=== PATIENT | female | born 1955 | race Caucasian/White ===

== ENCOUNTER 2017-04-01 11:39 | Emergency (ER) | payer BC, OTHER ==
[2017-04-01 11:56] VITALS: PULSE 108
[2017-04-01] MEDS ORDERED: Sodium Chloride 0.9% 1,000 ML IV ONE (12:03)
--- NOTE | 2017-04-01 12:14 | C.PDOC ---
History Of Present Illness Patient is a 61 y/o female that presents to the emergency department for evaluation of non-radiating LLQ abdominal cramping associated with n/v/d, fever , and chills since this morning. 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 Denies having similar symptoms in the past. Otherwise, denies any dysuria, hematuria, hematochezia, back pain, or any other associated symptoms at this time. Time Seen by Provider: 04/01/17 11:58 Chief Complaint (Nursing): Abdominal Pain History Per: Patient History/Exam Limitations: no limitations Onset/Duration Of Symptoms: Hrs Current Symptoms Are (Timing): Still Present Location Of Pain/Discomfort: LLQ Radiation Of Pain To:: None Quality Of Discomfort: Cramping Associated Symptoms: Fever, Chills, Nausea, Vomiting, Diarrhea. denies: Loss Of Appetite, Back Pain, Chest Pain, Constipation, Urinary Symptoms Exacerbating Factors: None Alleviating Factors: None Recent travel outside of the [place]: No Additional History Per: Patient Abnormal Vaginal Bleeding: No Past Medical History Reviewed: Historical Data, Nursing Documentation, Vital Signs Vital Signs: Last Vital Signs Temp 99.9 F H 04/01/17 16:03 Pulse 108 H 04/01/17 16:03 Resp 18 04/01/17 16:03 BP 111/69 04/01/17 16:03 Pulse Ox 98 04/01/17 16:03 Surgical History: Cholecystectomy Family History: States: Unknown Family Hx - Social History Hx Alcohol Use: No Hx Substance Use: No - Immunization History Hx Tetanus Toxoid Vaccination: No Hx Influenza Vaccination: No Hx Pneumococcal Vaccination: No Review Of Systems Constitutional: Positive for: Fever, Chills ENT: Negative for: Nose Congestion, Throat Pain Cardiovascular: Negative for: Chest Pain, Palpitations Respiratory: Negative for: Cough, Shortness of Breath Gastrointestinal: Positive for: Nausea, Vomiting, Abdominal Pain, Diarrhea. Negative for: Constipation, Melena, Hematochezia, Hematemesis, Rectal Pain Genitourinary: Negative for: Dysuria, Frequency, Incontinence, Hematuria, Vaginal Bleeding Musculoskeletal: Negative for: Back Pain Skin: Negative for: Rash Neurological: Negative for: Weakness, Numbness, Headache Physical Exam - Physical Exam Appears: Non-toxic, No Acute Distress Skin: Normal Color, Warm, Dry Head: Atraumatic, Normacephalic Eye(s): bilateral: Normal Inspection, EOMI Nose: Normal Oral Mucosa: Moist Neck: Normal ROM, Supple Chest: Symmetrical Cardiovascular: Rhythm Regular, No Murmur Respiratory: Normal Breath Sounds, No Rales, No Rhonchi, No Wheezing Gastrointestinal/Abdominal: Bowel Sounds (Normal), Soft, Tenderness (tenderness to LLQ with deep palpation), No Distention, No Guarding, No Rebound Back: Normal Inspection, No CVA Tenderness Extremity: Bilateral: Atraumatic, No Pedal Edema, Normal Color And Temperature, Normal ROM Neurological/Psych: Oriented x3, Normal Speech Gait: Steady ED Course And Treatment - Laboratory Results Result Diagrams: 04/01/17 12:34 04/01/17 12:34 Lab Interpretation: No Acute Changes O2 Sat by Pulse Oximetry: 99 (on RA) Pulse Ox Interpretation: Normal - CT Scan/US Abd & pelvis CT Other Rad Studies (CT/US): Read By Radiologist, Radiology Report Reviewed CT/US Interpretation: FINDINGS: LOWER THORAX: Right lower lobe atelectasis or infiltrate. No visible pleural effusion or pneumothorax. Small hiatal hernia/ distal esophageal wall thickening. LIVER: Mild intrahepatic biliary ductal dilatation, greatest centrally. Hypoattenuation of the liver compatible with hepatic steatosis. GALLBLADDER AND BILE DUCTS: Cholecystectomy. PANCREAS: Pancreatic atrophy. Small fluid/ inflammatory changes at the level of the pancreatic tail. SPLEEN: Unremarkable. ADRENALS: Unremarkable. KIDNEYS AND URETERS: The kidneys enhance symmetrically. No hydronephrosis or obstructing calculus identified. VASCULATURE: No aortic aneurysm. BOWEL: Stomach is nondistended. Lack of oral contrast limits evaluation for bowel pathology. Bowel loops appear within normal limits of caliber without evidence of obstruction. Diverticulosis without CT evidence of acute diverticulitis. APPENDIX: The appendix appears within normal limits of caliber. No secondary signs of acute appendicitis. PERITONEUM: No significant free fluid. No definite free air. LYMPH NODES: No bulky adenopathy identified. BLADDER: Unremarkable. REPRODUCTIVE: Heterogeneous appearance of the uterus. Several suspected fibroids. 3.3 x 2.5 cm ovoid/ rounded density in the left adnexal region, indeterminate ; recommend pelvic ultrasound further evaluation. BONES: Extensive degenerative changes of the spine. 11 mm anterolisthesis of L5 on S1. Anterior posterior osteophytes at multiple levels. Prominent anterior bridging osteophyte at L5-S1. OTHER FINDINGS: None. IMPRESSION: Pancreatic atrophy. Small fluid/ inflammatory changes at the level of the pancreatic tail. Recommend correlation with amylase and lipase and or to assess for possibility of pancreatitis. 3.3 x 2.5 cm left adnexal hyperdense ovoid/rounded density, indeterminate ; recommend pelvic ultrasound further evaluation. Benign and malignant etiologies must be considered. Heterogeneous appearance of the uterus. Several suspected fibroids. Hepatic steatosis. Intrahepatic biliary ductal dilatation, most prominent centrally. Diverticulosis without CT evidence of acute diverticulitis. Right lower lobe atelectasis or infiltrate. Small hiatal hernia/distal esophageal wall thickening. Additional findings as above. Medical Decision Making Medical Decision Making: Patient with LLQ abdominal pain and associated vomiting and diarrhea. Orders placed for Abd & pelvis CT, blood work, urinalysis; suspect diverticulitis. Patient was treated with Pepcid, Toradol, Zofran, and IV fluids. All labs reviewed with no significant findings no leukocytosis or electrolyte abnormality. CT shows no acute diverticulitis, and other findings in pelvis not critical. On reassessment, patient is resting comfortably, with no significant distress. Abdomen remains soft. Patient reports improvement of abdominal pain. 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 Will prescribe medications and instruct to follow up with PCP. Disposition Counseled Patient/Family Regarding: Studies Performed, Diagnosis, Need For Followup, Rx Given - Disposition Referrals: [facility] [Outside] [facility] [Outside] [facility] [Outside] Disposition: HOME/ ROUTINE Disposition Time: 16:00 Condition: IMPROVED Additional Instructions: Tus laboratorios diana normales. La tomografa computarizada muestra fibroma y masa a ovario kimberlee y es importante que realice un seguimiento con un [facility] logo. [place] medicamentos para el dolor cuando sea necesario Siga con shine mdico o clnica primaria en 2-5 glover para la evaluacin adicional. Regrese al servicio de urgencias en cualquier momento si los sntomas persisten o empeoran. Prescriptions: Famotidine [Pepcid] 40 mg PO DAILY #30 tab Ibuprofen [Motrin] 600 mg PO Q8 #30 tab Instructions: Abdominal Pain (ED) Forms: Work Excuse Print Language: TRINIDADIAN - POA Present On Arrival: None - Clinical Impression Clinical Impression: LLQ abdominal pain, Fibroid uterus - PA / MANAGER INVESTMENT / Resident Statement MD/DO has reviewed & agrees with the documentation as recorded. - Scribe Statement The provider has reviewed the documentation as recorded by the Falguniibrola Leblanc All medical record entries made by the Falguniibrola were at my direction and personally dictated by me. I have reviewed the chart and agree that the record accurately reflects my personal performance of the history, physical exam, medical decision making, and the department course for this patient. I have also personally directed, reviewed, and agree with the discharge instructions and disposition.
[2017-04-01] MEDS ORDERED: Sodium Chloride 0.9% 1,000 ML ONE (12:33)
[2017-04-01 12:45] LABS: ALBUMIN 3.9 g/dL (3.5-5.0)
[2017-04-01 12:46] LABS: BASO % 0.2 % (0.0-2.0); EOS % 0.2 % (0.0-4.0); HEMOGLOBIN 13.3 g/dL (11.0-16.0); LYMPH # 0.7 K/uL (1.0-4.3); LYMPH % 6.9 % (20.0-40.0); MEAN CELL VOLUME 84.5 fL (81.0-99.0); MEAN CORPUSCULAR HEMOGLOBIN 27.4 pg (27.0-31.0); MEAN CORPUSCULAR HGB CONC 32.4 g/dL (33.0-37.0); MEAN PLATELET VOLUME 8.2 fL (7.2-11.7); MONO # 0.2 K/uL (0.0-0.8); MONO % 1.9 % (0.0-10.0); NEUT # 9.6 K/uL (1.8-7.0); NEUT % 90.8 % (50.0-75.0); PLATELET COUNT 189 K/uL (130-400); RBC 4.87 Mil/uL (3.80-5.20); RED CELL DISTRIBUTION WIDTH 14.7 % (11.5-14.5); WHITE BLOOD COUNT 10.6 K/uL (4.8-10.8)
[2017-04-01 12:48] LABS: ALB/GLOB RATIO 1.2 (1.0-2.1); ALT/SGPT 36 U/L (9-52); AST/SGOT 28 U/L (14-36); BLOOD UREA NITROGEN 15 mg/dL (7-17); GFR AFRICAN-AMERICAN > 60; GFR NON-AFRICAN AMERICAN > 60
[2017-04-01 12:49] LABS: CALCIUM 9.1 mg/dl (8.6-10.4); LIPASE 73 U/L (23-300)
[2017-04-01 13:08] LABS: LYMPHOCYTE 8 % (20-40); MONOCYTE 1 % (0-10); TOTAL CELLS COUNTED 100
[2017-04-01 13:09] LABS: BANDS 9 % (0-2); NEUTROPHIL 82 % (50-75); PLATELET ESTIMATE NORMAL (NORMAL)
[2017-04-01] MEDS ORDERED: Iohexol 350mg/ml 100 ML ONE (13:17)
[2017-04-01 13:23] LABS: SQUAMOUS EPITHIAL 1 /hpf (0-5); URINE BACTERIA RARE (<OCC); URINE BILIRUBIN NEGATIVE (NEGATIVE); URINE BLOOD 3+ (NEGATIVE); URINE CLARITY Clear (Clear); URINE COLOR Straw (YELLOW); URINE GLUCOSE (UA) NORMAL (Normal); URINE LEUKOCYTE ESTERASE NEG Leu/uL (Negative); URINE NITRATE NEGATIVE (NEGATIVE); URINE PROTEIN NEGATIVE (NEGATIVE); URINE UROBILINOGEN NORMAL mg/dL (0.2-1.0)
--- NOTE | 2017-04-01 15:25 | CT ---
PROCEDURE: CT Abdomen and Pelvis with contrast HISTORY: LLQ abd pain COMPARISON: None available. TECHNIQUE: Contrast dose: 100 cc Omnipaque 350 Radiation dose: Total exam DLP = 1156.92 mGy-cm. This CT exam was performed using one or more of the following dose reduction techniques: Automated exposure control, adjustment of the mA and/or kV according to patient size, and/or use of iterative reconstruction technique. FINDINGS: LOWER THORAX: Right lower lobe atelectasis or infiltrate. No visible pleural effusion or pneumothorax. Small hiatal hernia/distal esophageal wall thickening. LIVER: Mild intrahepatic biliary ductal dilatation, greatest centrally. Hypoattenuation of the liver compatible with hepatic steatosis. GALLBLADDER AND BILE DUCTS: Cholecystectomy. PANCREAS: Pancreatic atrophy. Small fluid/ inflammatory changes at the level of the pancreatic tail. SPLEEN: Unremarkable. ADRENALS: Unremarkable. KIDNEYS AND URETERS: The kidneys enhance symmetrically. No hydronephrosis or obstructing calculus identified. VASCULATURE: No aortic aneurysm. BOWEL: Stomach is nondistended. Lack of oral contrast limits evaluation for bowel pathology. Bowel loops appear within normal limits of caliber without evidence of obstruction. Diverticulosis without CT evidence of acute diverticulitis. APPENDIX: The appendix appears within normal limits of caliber. No secondary signs of acute appendicitis. PERITONEUM: No significant free fluid. No definite free air. LYMPH NODES: No bulky adenopathy identified. BLADDER: Unremarkable. REPRODUCTIVE: Heterogeneous appearance of the uterus. Several suspected fibroids. 3.3 x 2.5 cm ovoid/ rounded density in the left adnexal region, indeterminate ; recommend pelvic ultrasound further evaluation. BONES: Extensive degenerative changes of the spine. 11 mm anterolisthesis of L5 on S1. Anterior posterior osteophytes at multiple levels. Prominent anterior bridging osteophyte at L5-S1. OTHER FINDINGS: None. IMPRESSION: Pancreatic atrophy. Small fluid/ inflammatory changes at the level of the pancreatic tail. Recommend correlation with amylase and lipase and or to assess for possibility of pancreatitis. 3.3 x 2.5 cm left adnexal hyperdense ovoid/rounded density, indeterminate ; recommend pelvic ultrasound further evaluation. Benign and malignant etiologies must be considered. Heterogeneous appearance of the uterus. Several suspected fibroids. Hepatic steatosis. Intrahepatic biliary ductal dilatation, most prominent centrally. Diverticulosis without CT evidence of acute diverticulitis. Right lower lobe atelectasis or infiltrate. Small hiatal hernia/distal esophageal wall thickening. Additional findings as above.
[2017-04-01 16:04] VITALS: BP 111/69; RESP 18; TEMP 99.9
[2017-04-01 16:54] VITALS: O2SAT 99
== END 2017-04-01 16:00 | disposition home or self-care (01) ==
LOC: C.ER 11:39
DX: D25.9 Leiomyoma of uterus, unspecified (principal); R10.32 Left lower quadrant pain
CPT/HCPCS: 74177; 80053; 81001; 83690; 85025; 96361; 96374; 96375; 99285; J1885; J2405; J7040; Q9967